=== PATIENT | male | born 1990 | race African-American/Black ===

== ENCOUNTER 2022-11-10 22:48 | Emergency (ER) | payer BC ==
[~2022-11-10] VITALS: Ht 180.3 cm; Wt 75.0 kg
[2022-11-10] MEDS ORDERED: IBUPROFEN 800 MG TAB PO ONE (23:45)
[2022-11-10] MEDS ORDERED: AMOXICILLIN/CLAVUL 875 MG TAB PO ONE (23:45)
[2022-11-10] MEDS ORDERED: TETANUS-DIPTH-ACEL PERTUSSIS 0.5ML SYR Tdap IM ONE (23:45)
[2022-11-10] MEDS ORDERED: HYDROcodone-ACET 5/325MG TAB PO ONE (23:45)
[2022-11-10] MEDS ORDERED: IBUP-1455 PO (23:47)
[2022-11-10] MEDS ORDERED: AUG875T PO (23:47)
[2022-11-10] MEDS ORDERED: HYDR-4902 PO (23:47)
[2022-11-11 01:10] VITALS: BP 124/76
== END 2022-11-11 01:16 | disposition home or self-care (01) ==
LOC: ER 22:48
DX: K04.7 Periapical abscess without sinus (principal)
CPT/HCPCS: 90471; 90715

== ENCOUNTER 2023-08-03 20:01 | Emergency (ER) | payer SELFPAY ==
[~2023-08-03 20:01] MED LIST: AUG875T PO; HYDR-4902 PO; IBUP-1455 PO
[2023-08-04] MEDS ORDERED: AMOX875T4 PO (17:06)
[2023-08-04] MEDS ORDERED: IBUP-1456 PO (17:06)
[2023-08-05] MEDS ORDERED: IBUP-1455 PO (11:30)
[2023-08-05] MEDS ORDERED: AMOX875T4 PO (11:30)
[2023-08-05] MEDS ORDERED: IBUP-1456 PO (11:30)
== END 2023-08-03 20:58 | disposition left against medical advice (07) ==
LOC: ER 20:01
DX: K08.89 Other specified disorders of teeth and supporting structures (principal); Z53.21 Procedure and treatment not carried out due to patient leaving prior to being seen by health care provider

== ENCOUNTER 2023-08-04 15:40 | Emergency (ER) | payer SELFPAY ==
[~2023-08-04] VITALS: Ht 180.3 cm; Wt 78.2 kg
[2023-08-04 16:35] VITALS: BP 128/74; PULSE 93; RESP 20; TEMP 98.4; O2SAT 95
[2023-08-04] MEDS ORDERED: IBUP-1456 PO (17:06)
[2023-08-04] MEDS ORDERED: AMOX875T4 PO (17:06)
[2023-08-04] MEDS: cefTRIAXone SOD 1,000 MG VL IM ONE (17:15)
[2023-08-04] MEDS: KETOROLAC TROMETH 60MG/2ML VIAL IM ONE (17:15)
[2023-08-04] MEDS: AMOXICILLIN/CLAVUL 875 MG TAB PO ONE (17:35)
[2023-08-05] MEDS ORDERED: IBUP-1456 PO (11:30)
[2023-08-05] MEDS ORDERED: AMOX875T4 PO (11:30)
[2023-08-05] MEDS ORDERED: IBUP-1455 PO (11:30)
== END 2023-08-04 17:37 | disposition home or self-care (01) ==
LOC: ER 15:40
DX: S02.5XXA Fracture of tooth (traumatic), initial encounter for closed fracture (principal); K04.7 Periapical abscess without sinus; Z79.899 Other long term (current) drug therapy; X58.XXXA Exposure to other specified factors, initial encounter; Y93.89 Activity, other specified; Y92.89 Other specified places as the place of occurrence of the external cause; Y99.8 Other external cause status
CPT/HCPCS: 99283; J0696; J1885

== ENCOUNTER 2024-06-02 09:54 | Emergency (ER) | payer MEDICAID ==
[~2024-06-02] VITALS: Ht 180.3 cm; Wt 61.6 kg
[~2024-06-02 09:54] MED LIST changes: +AMOX875T4 PO; +IBUP-1456 PO
[2024-06-02 11:27] VITALS: PULSE 104; RESP 18; O2SAT 98
[2024-06-02] MEDS ORDERED: ACET500T58 PO (12:03)
[2024-06-02] MEDS ORDERED: AZIT-43 PO (12:03)
[2024-06-02] MEDS ORDERED: BENZ100C97 PO (12:03)
[2024-06-02] MEDS ORDERED: PROM1SOL4 PO (12:03)
--- NOTE | 2024-06-02 12:03 | ED.PDOC ---
SOB-HPI HPI Comments This is a pleasant 34-year-old gentleman with a MHx that presents with a chief complaint of URI symptoms for the last two weeks. Complains of myalgia, malaise, chills, productive cough with a green phlegm, sore throat, fevers that come and go. Able to get minimal relief with [id number] Tylenol cold and flu. No other complaints or concerns. Denies fevers chills night sweats unintentional weight loss Denies persistent chest pain, shortness of breath, leg swelling Denies history of asthma nor any breathing conditions Denies history of pneumonia Denies recent international travel Chief Complaint: Flu like Time Seen by MD: 10:59 Primary Care Provider: UNKNOWN Reviewed notes: Nurses Notes, Medications, Allergies Information Source: Patient Mode of Arrival: Ambulatory Past Medical History PAST MEDICAL HISTORY: Denies Surgical History: Denies all surgeries Family History Family History: Unknown Social History Smoker: Non-Smoker Alcohol: Denies ETOH Use Drugs: Denies Drug Use Lives In: Home All Other Systems: Reviewed and Negative (per hpi) Physical Exam General Appearance: No Apparent Distress, Normal HEENT: Normal ENT Inspection, Pharynx Normal, TMs Normal Neck: Full Range of Motion, Non-Tender, Normal, Normal Inspection Respiratory: Chest Non-Tender, Lungs Clear, No Accessory Muscle Use, No Respiratory Distress, Normal Breath Sounds Cardiovascular: No Edema, No JVD, No Murmur, No Gallop, Normal Peripheral Pulses, Regular Rate/Rhythm Breast Exam: Deferred Gastrointestinal: No Organomegaly, Non Tender, No Pulsatile Mass, Normal Bowel Sounds, Soft Genitalia: Deferred Pelvic: Deferred Rectal: Deferred Extremities: No calf tenderness, Normal capillary refill, Normal inspection, Normal range of motion, Non-tender, No pedal edema Musculoskeletal : Apperance: Normal Neurologic: Alert, No Motor Deficits, Normal Affect, Normal Mood, No Sensory Deficits Cerebellar Function: Normal Reflexes: Normal Skin: Dry, Normal Color, Warm Lymphatic: No Adenopathy Was a procedure done? Was a procedure done?: No Differential Dx Differential Diagnosis: URI X-Ray, Labs, Meds, VS Vital Signs Date Time Temp Pulse Resp B/P (MAP) Pulse Ox O2 Delivery O2 Flow Rate FiO2 06/02/24 11:27 104 18 98 Room Air* 0 21 06/02/24 10:49 99.0 118 20 126/89 (101) 96 99.0 06/02/24 10:05 98.5 119 17 137/91 (106) 96 06/02/24 10:05 17 96 Room Air 0 X-Ray, Labs, Meds, VS Comment On presentation, the patient is afebrile and has stable vital signs. The patient is overall well-appearing nontoxic on exam. On physical exam, respirations even and unlabored, clear to auscultation bilaterally. Oxygen stable on room air. 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 Empiric treatment. Plan for symptomatic control for fever and pain as needed. The patient was able to tolerate p.o. intake in the ED. at this time, patient is safe for discharge home. The exam findings and plan discussed. We will discharge home with PCP follow up and strict return precautions. Discussed that cough can linger up to 6 weeks after viral URI Supportive care and return precautions discussed Counseled viral infection and explained that antibiotics would not be helpful in resolving the illness sooner. Recommended vitamin C, rest, handwashing, and symptomatic care. Expect 2-week course with possibly of cough lingering up to 6 weeks. Nonpharmacological remedies for fluids has been recommended as well Time of 1ST Reevaluation: 11:58 Reevaluation 1ST: Improved Patient Education/Counseling: Diagnosis, Treatment Family Education/Counseling: Diagnosis, Treatment Departure 1 Departure Time of Disposition: 11:59 Impression: Primary Impression: Viral syndrome Disposition: HOME / SELF CARE / HOMELESS Condition: Stable e-Prescriptions Acetaminophen (Acetaminophen) 500 Mg Tab 500 MG PO Q6HP PRN for 10 Days, #40 TAB 0 Refills Prov: RITU ANDERSON [employer] 06/02/24 Promethazine-Dm (Promethazine Dm 6.25-15 mg/5Ml) 1 Katty Katty 5 ML PO TID for 10 Days, #150 ML 0 Refills Prov: RITU ANDERSON [employer] 06/02/24 Benzonatate (Benzonatate) 100 Mg Cap 1 CAP PO TID, #30 CAP 0 Refills Prov: RIUT ANDERSON [employer] 06/02/24 Azithromycin (Azithromycin) 250 Mg Tab 250 MG PO DAILY MDD 500 for 5 Days, #6 TAB 0 Refills 2 TABLETS ORALLY ON DAY ONE, THEN 1 TABLET ORALLY DAILY FOR 4 DAYS Prov: RITU ANDERSON NP 06/02/24 Discharged With: Self Critical Care Note Critical Care Time?: No Stability Stability form required: No Heart Score Heart Score: Heart Score Response (Comments) Value History N/A 0 EKG N/A 0 Age N/A 0 Risk Factors N/A 0 Troponin N/A 0 Total 0 RITU ANDERSON NP Jun 02, 2024 12:03
[2024-06-02 12:10] VITALS: BP 116/84; PULSE 109; RESP 17; TEMP 100.3; O2SAT 99
== END 2024-06-02 12:19 | disposition home or self-care (01) ==
LOC: ER 09:54
DX: B34.9 Viral infection, unspecified (principal)
CPT/HCPCS: 99283; J7030